=== PATIENT | male | born 1960 | race African-American/Black ===

== ENCOUNTER 2025-02-18 15:24 | Emergency (ER) | payer OTHER, MEDICAID ==
[~2025-02-18] VITALS: Ht 180.3 cm; Wt 85.0 kg
[~2025-02-18 15:24] MED LIST: ALBUTEROL; ALBUTEROL SULFATE INH; ASPI-518 PO; ATOR10TA PO; ESCI20TA37 PO; SERT-422 PO
[2025-02-18 15:33] VITALS: BP 172/101; TEMP 36.7
[2025-02-18 15:36] VITALS: O2SAT 99
[2025-02-18] MEDS: PREDNISONE 20MG TABLET PO ONE (16:24)
[2025-02-18] MEDS: LORAZEPAM 1MG TABLET PO ONE (16:24)
[2025-02-18] MEDS: AZITHROMYCIN 500 MG TABLET PO ONE (16:24)
[2025-02-18] MEDS: ALBUTEROL (0.083%) 2.5MG/3ML NEB HHN SCH (16:53)
[2025-02-18 16:57] VITALS: PULSE 87; RESP 20; O2SAT 98
== END 2025-02-18 17:30 | disposition left against medical advice (07) ==
LOC: ER 15:24 → CMPBEDREQ 02-19 07:58
DX: J45.901 Unspecified asthma with (acute) exacerbation (principal); I10 Essential (primary) hypertension; F31.9 Bipolar disorder, unspecified; F20.9 Schizophrenia, unspecified; Z87.891 Personal history of nicotine dependence
CPT/HCPCS: 99283; 71045; 94640; 93005; J7512; 94070; 94664